=== PATIENT | male | born 2000 | race Caucasian/White ===

== ENCOUNTER 2025-05-11 18:24 | Emergency (ER) | payer BC, SELFPAY ==
[2025-05-11 18:29] VITALS: BP 155/102; PULSE 76; TEMP 36.8; O2SAT 99; BMI 24.4
--- NOTE | 2025-05-11 18:37 | ED_ITS ---
HPI HPI - General Adult General Chief complaint: Skin/Abscess/Foreign Body Stated complaint: RASH/ NESS Time Seen by Provider: 05/11/25 18:31 Source: patient Mode of arrival: walk-in Limitations: no limitations History of Present Illness HPI narrative: 25-year-old male presents for rash on both arms and in various areas of his body including his groin area which she has had for several days. He started developing this rash after cutting some brush. He believes it is poison lisa or poison oak. He saw his doctor who gave him a shot of a steroid but he was not prescribed any oral medication and he is interested in steroid pills. Related Data Previous Rx's ?Medication ?Instructions ?Recorded prednisone 10 mg tablet See Rx Instructions .Route 0 05/11/25 .COMPLEX #30 tabs Allergies Allergy/AdvReac Type Severity Reaction Status Date / Time No Known Drug Allergies Allergy Verified 05/11/25 18:29 Opioid HPI Opioid Management Most Recent Opioid Data: Last Pain Scale 5 Today, 18:29 Review of Systems ROS Narrative A ten point review of systems is negative except as noted above. PFSH PFSH Social History Little interest or pleasure in doing things: not at all Feeling down, depressed, or hopeless: not at all Exam Narrative Exam Narrative: Nurses note and vital signs reviewed and patient is not hypoxic. General: The patient appears well and in no apparent distress. Patient is resting comfortably on cart. Skin: Warm, dry, no pallor noted. There is erythematous rash present on both arms as well as his abdomen and groin area in his right thigh. Other areas have it as well. Head: Normocephalic, atraumatic Eye: Normal conjunctiva, no drainage Ears, Nose, Mouth, and Throat: oral mucosa is moist. Nares patent. Cardiovascular: Regular Rate and Rhythm Respiratory: Patient is in no distress, no accessory muscle use, lungs are clear to auscultation, no wheezing, rales or rhonchi Back: non-tender GI: Soft and nontender Musculoskeletal: All joints have full range of motion Neurological: A&O, normal speech Psychiatric: Cooperative Constitutional Vital Signs, click to edit/add: Last Vital Signs Temp 98.2 F 05/11/25 18:29 Pulse 76 05/11/25 18:29 Resp 20 05/11/25 18:29 BP 155/102 H 05/11/25 18:29 Pulse Ox 99 05/11/25 18:29 Course Vital Signs Vital signs: Vital Signs Temperature 98.2 F 05/11/25 18:29 Pulse Rate 76 05/11/25 18:29 Respiratory Rate 20 05/11/25 18:29 Blood Pressure 155/102 H 05/11/25 18:29 Pulse Oximetry 99 05/11/25 18:29 Temperature 98.2 F 05/11/25 18:29 Pulse Rate 76 05/11/25 18:29 Respiratory Rate 20 05/11/25 18:29 Blood Pressure 155/102 H 05/11/25 18:29 Pulse Oximetry 99 05/11/25 18:29 Medical Decision Making MDM Narrative Medical decision making narrative: My clinical impression is that the patient has contact dermatitis, likely poison lisa. He was given IM Solu-Medrol and prescribed prednisone. Treatment diagnosis and follow-up were discussed with the patient. Differential Diagnosis Differential Diagnosis: Poison lisa, poison oak Discharge Plan Discharge Chief Complaint: Skin/Abscess/Foreign Body Clinical Impression: Contact dermatitis Patient Disposition: Home, Self-Care Time of Disposition Decision: 18:36 Condition: Good Mode of Transportation: Private Vehicle Prescriptions / Home Meds: New prednisone 10 mg tablet See Rx Instructions .ROUTE .COMPLEX Qty: 30 0RF Rx Instructions: 4 by mouth daily for three days then 3 by mouth daily for three days then 2 by mouth daily for three days then 1 by mouth daily for three days Print Language: Venezuelan Instructions: Contact Dermatitis (ED), Poison Lisa (ED) Additional Instructions: OTC Zanfel for itching
[2025-05-11] MEDS: METHYLPREDNISOLONE SOD SUCC PF 125 MG/2 ML VIAL IM (18:44)
== END 2025-05-11 18:48 | disposition home or self-care (01) ==
PROVIDERS: Emergency Provider Emergency Medicine; PCP Family Medicine
DX: L25.9 Unspecified contact dermatitis, unspecified cause (principal)
CPT/HCPCS: 96372; 99284; J2919